=== PATIENT | female | born 1975 | race Two or more races ===

== ENCOUNTER 2017-02-11 10:33 | Emergency (ER) | payer MEDICAID ==
[~2017-02-11] VITALS: Ht 154.9 cm; Wt 63.0 kg
[~2017-02-11 10:33] MED LIST: FERR27TA PO; INSU100C9 SC; INSULIN; NPH SQ; PREN1TAB49 PO; REG SC
[2017-02-11 10:37] VITALS: Ht 154.9 cm; Wt 63.0 kg
--- NOTE | 2017-02-11 11:01 | ERD ---
ER Documentation Chief Complaint Date/Time DATE: 02/11/17 TIME: 10:53 Chief Complaint bilat eye irritation HPI 41-year-old female who presents to the emergency department for bilateral eye irritation for about 10 days. Complains of blurry vision due to her irritation. Denies headache, dizziness, neck pain, eye trauma, halos around lights, tunnel vision, head trauma, neck pain, neck stiffness, difficulty swallowing, shoulder pain, chest pain, back pain, abdominal pain, nausea, vomiting, constipation, diarrhea, urinary symptoms, exposure to any illness, numbness or tingling sensation, fever, chills. No known drug allergies. Has past medical history of diabetes. No surgeries. Does not work at this time. Denies smoking, use of alcohol, use of illegal drugs. ROS All systems reviewed and are negative except as per history of present illness. Medications Home Meds Active Scripts Sulfacetamide Sodium* (Bleph-10*) 10%-15 Ml Opht Drops, 1 DROP BOTH EYES Q2H for 7 Days, #1 EA Prov:SHAYLA KILGOREJC Velazquez 02/11/17 Reported Medications [Insulin] No Conflict Check 09/30/13 Insulin Human Regular (Novolin-R) 100 Unit/Ml Soln, 0 SC DINNER 10/29/11 Insulin Regular, Human (Novolin R) 100 U/Ml Cartridge, 0 SC AM, #14 10/29/11 Insulin Human Nph (Novolin-N) 100 Units/Ml Susp, 0 SQ HS, #22 10/29/11 Insulin Human Nph (Novolin-N) 100 Units/Ml Susp, 0 SQ AM, #30 10/29/11 Ferrous Sulfate (Iron) 1 Tab Tablet, PO AM 04/02/11 Vits W-Ca,Fe,Fa(<1MG) () 1 Tab Tablet, 1 TAB PO DAILY 04/01/11 Allergies Allergies: Coded Allergies: No Known Allergies (Verified Allergy, Mild, 02/11/17) PMhx/Soc History of Surgery: No Anesthesia Reaction: No Hx Neurological Disorder: No Hx Respiratory Disorders: No Hx Cardiac Disorders: No Hx Psychiatric Problems: No Hx Miscellaneous Medical Probl: No Hx Alcohol Use: No Hx Substance Use: No Hx Tobacco Use: No Smoking Status: Never smoker Physical Exam Vitals Vital Signs Date Time Temp Pulse Resp B/P Pulse Ox O2 Delivery O2 Flow Rate FiO2 02/11/17 10:37 98.2 99 18 171/97 99 Physical Exam Const: [] Head: Atraumatic Eyes: MIld conjunctival injection. Extraocular movement of her eyes are WNLs. No pain on eye movement. No visual field loss. ENT: Normal External Ears, Nose and Mouth. No signs of meningeal irritation. Neck: Full range of motion..~ No meningismus. Resp: Clear to auscultation bilaterally Cardio: Regular rate and rhythm, no murmurs Abd: Soft, non tender, non distended. Normal bowel sounds Skin: No petechiae or rashes Back: No midline or flank tenderness Ext: No cyanosis, or edema Neur: Awake and alert x 4. No neurological deficits. Romberg test is negative. Psych: Normal Mood and Affect Results 24 hrs Laboratory Tests Test 02/11/17 12:04 Bedside Glucose 127mg/dL Current Medications Medications (Trade) Dose Ordered Sig/Johnathon Route PRN Reason Start Time Stop Time Status Last Admin Dose Admin Tetracaine HCl (Tetracaine 0.5% Steri-Unit [place]) 1 drop ONCE ONCE BOTH EYES 02/11/17 11:30 02/11/17 11:31 DC Fluorescein Sodium (Ayqde-I-Waoak) 1 strip STK-MED ONCE .ROUTE 02/11/17 11:04 02/11/17 11:05 DC Fluorescein Sodium (Sittb-O-Kcndc) 1 strip ONCE ONCE BOTH EYES 02/11/17 11:30 02/11/17 11:31 DC Procedures/MDM 41-year-old female who presents to the emergency department for bilateral eye irritation for about 10 days. Complains of blurry vision due to her irritation. Denies headache, dizziness, neck pain, eye trauma, halos around lights, tunnel vision, head trauma, neck pain, neck stiffness, difficulty swallowing, shoulder pain, chest pain, back pain, abdominal pain, nausea, vomiting, constipation, diarrhea, urinary symptoms, exposure to any illness, numbness or tingling sensation, fever, chills. No known drug allergies. Has past medical history of diabetes. No surgeries. Does not work at this time. Denies smoking, use of alcohol, use of illegal drugs. Physical exam: MIld conjunctival injection. Extraocular movement of her eyes are WNLs. No pain on eye movement. No visual field loss. Sensory sinus are nontender to palpation. Patent airway. No signs of meningeal irritation. Cranial nerves II through XII are intact. Romberg test is negative. No neurological deficits. Disease process was explained to the patient and family member. They both verbalized understanding and agreed with the diagnostic exam, treatment, plan of care, follow-up. Visual acuity: Reviewed. Treatment: Tetracaine ophthalmic drops 1 bilaterally. [place]: Negative for foreign body. Tonopen: Right eye: 18, 24,24 Left eye: 14, 22, 24 Re-evaluation: Extraocular movement of her eyes are WNLs. No pain on eye movement. Sensory sinus are nontender to palpation. Patent airway. No signs of meningeal irritation. Cranial nerves II through XII are intact. Romberg test is negative. No neurological deficits. Differential diagnosis: Acute angle-closure glaucoma versus diabetic retinopathy versus renal detachment versus foreign body to the eyes versus bacterial conjunctivitis versus viral conjunctivitis versus corneal abrasion versus subconjunctival hemorrhage Final diagnosis: Conjunctivitis Prescription: Bleph-10. Follow-up with primary care physician the next 24-48 hours. PCP to refer patient to cyber legal advisor the next 24-48 hours. Come back here in the emergency department for any new symptoms or any worsening of symptoms. Provided with resources. All questions and concerns are answered. Patient verbalized understanding and agreed with the plan of care. Hemodynamically stable on discharge. Departure Diagnosis: Primary Impression: Conjunctivitis Condition: Stable Additional Instructions: Follow-up with primary care physician the next 24-48 hours. PCP to refer patient to cyber legal advisor the next 24-48 hours. Come back here in the emergency department for any new symptoms or any worsening of symptoms. Provided with resources. All questions and concerns are answered. Patient verbalized understanding and agreed with the plan of care. BRENTON KILGORE Feb 11, 2017 11:00
[2017-02-11] MEDS ORDERED: FLUORESCEIN STRIP ONE (11:04)
[2017-02-11] MEDS ORDERED: TETRACAINE 0.5% 4 ML OPH BOTH EYES ONE (11:30)
[2017-02-11] MEDS ORDERED: FLUORESCEIN STRIP BOTH EYES ONE (11:30)
[2017-02-11] MEDS ORDERED: SULF15DR19 BOTH EYES (11:43)
== END 2017-02-11 12:16 | disposition home or self-care (01) ==
LOC: FTE 10:33
DX: H10.9 Unspecified conjunctivitis (principal); Z79.4 Long term (current) use of insulin
CPT/HCPCS: 82962; Z7502; Z7610; 99283

== ENCOUNTER 2017-11-17 11:07 | Emergency (ER) | END 2017-11-17 15:38 | disposition home or self-care (01) ==

== ENCOUNTER 2018-08-15 09:09 | Emergency (ER) | payer MEDICAID ==
[~2018-08-15] VITALS: Ht 160 cm; Wt 65.3 kg
[~2018-08-15 09:09] MED LIST changes: +FAMO-96 PO; +NITR-58 PO; +SULF15DR19 BOTH EYES
[2018-08-15 09:10] VITALS: BP 149/87; PULSE 89; RESP 18; Ht 160 cm; Wt 65.3 kg
[2018-08-15] MEDS ORDERED: ACYC800T5 PO (09:44)
[2018-08-15] MEDS ORDERED: HYDR-4011 PO (09:44)
--- NOTE | 2018-08-15 09:53 | ERD ---
ER Documentation Chief Complaint Chief Complaint generalze right arm pain and painful sore and bumps on arm x1 HPI 42-year-old female past medical history of diabetes who presents with complaint of right arm rash and pain for approximately 1 week. States she noticed rash/vesicles on upper arm shoulder on the right side first on Wednesday and subsequently noticed spread of rash/vesicles to hand on dorsum surface. He has had tremendous pain to right arm limiting movement but denies any history of trauma. Describes pain as a burning pain. She denies previous history of similar rashes. No recent travel, denies use of new shampoos or lotions. Denies any involvement of ration L any other part of the body seems to be localized to right arm. Denies eye involvement. She otherwise is without complaint. At time of evaluation patient nontoxic-appearing with stable vital signs no fevers. ROS All systems reviewed and are negative except as per history of present illness. Medications Home Meds Active Scripts Hydrocodone/Acetaminophen ([place] 5-325 Tablet) 1 Each Tablet, 1 EACH PO Q6 for 7 Days, TAB Prov:SHYLA BONILLA PA-C 08/15/18 Acyclovir* (Zovirax*) 800 Mg Tablet, 800 MG PO 5 TIMES DAILY for 7 Days, TAB Prov:SHYLA BONILLA-C 08/15/18 Nitrofurantoin Monohyd Macrocr* (Macrobid*) 100 Mg Capsr, 100 MG PO BID for 5 Days, CAP Prov:LUZ CALLAHAN PA-C 11/17/17 Famotidine* (Pepcid*) 20 Mg Tablet, 20 MG PO BID for 30 Days, TAB Prov:LUZ CALLAHAN PA-C 11/17/17 Sulfacetamide Sodium* (Bleph-10*) 10%-15 Ml Opht Drops, 1 DROP BOTH EYES Q2H for 7 Days, #1 EA Prov:BRENTON KILGORE 02/11/17 Reported Medications [Insulin] No Conflict Check 09/30/13 Insulin Human Regular (Novolin-R) 100 Unit/Ml Soln, 0 SC DINNER 10/29/11 Insulin Regular, Human (Novolin R) 100 U/Ml Cartridge, 0 SC AM, #14 10/29/11 Insulin Human Nph (Novolin-N) 100 Units/Ml Susp, 0 SQ HS, #22 10/29/11 Insulin Human Nph (Novolin-N) 100 Units/Ml Susp, 0 SQ AM, #30 10/29/11 Ferrous Sulfate (Iron) 1 Tab Tablet, PO AM 04/02/11 Vits W-Ca,Fe,Fa(<1MG) () 1 Tab Tablet, 1 TAB PO DAILY 04/01/11 Allergies Allergies: Coded Allergies: No Known Allergies (Verified Allergy, Mild, 11/17/17) PMhx/Soc History of Surgery: No Anesthesia Reaction: No Hx Neurological Disorder: No Hx Respiratory Disorders: No Hx Cardiac Disorders: No Hx Psychiatric Problems: No Hx Miscellaneous Medical Probl: Yes (dm) Hx Alcohol Use: No Hx Substance Use: No Hx Tobacco Use: No Smoking Status: Never smoker FmHx Family History: diabetes, coronary disease, other Physical Exam Vitals Vital Signs Date Temp Pulse Resp B/P (MAP) Pulse Ox O2 O2 Flow FiO2 Time Delivery Rate 08/15/18 97.6 89 18 149/87 99 09:10 (107) Physical Exam I have reviewed the triage vital signs. Const: Well nourished, well developed, appears stated age Eyes: PERRL, no conjunctival injection HENT: NCAT, Neck supple without meningismus, no lymphadenopathy CV: RRR, Warm, well-perfused extremities RESP: CTAB, Unlabored respiratory effort GI: soft, non-tender, non-distended, no masses MSK: No gross deformities appreciated Skin: Warm, dry. erythematous clear vesicles distributed [id number] c6 dermatome pattern, uppr R arm and dorsum of hand, upper shoulder rash in state of healing Neuro: grossly non focal Psych: Appropriate mood and affect. Procedures/MDM 42-year-old female who presents with right arm rash and pain suspicious for shingles infection. Doubt any other emergent pathology given classic presentat ion and otherwise stable appearing patient. No reported eye involvement. Plan: Acyclovir [place] for pain control DISPOSITION PLAN: We discussed follow up with the patient's primary care doctor within 24 to 48 hours. Patient counseled regarding my diagnostic impression and care plan. Prior to discharge all questions answered. Pt agrees with treatment plan and understands strict return precautions. Precautionary instructions provided including instructions to return to the ER if not improving or for any worsening or changing symptoms or concerns. Departure Diagnosis: Primary Impression: Shingles Additional Impression: Pain of right arm Condition: Stable Patient Instructions: Shingles (Herpes Zoster) Referrals: [facility] YOU HAVE RECEIVED A MEDICAL SCREENING EXAM AND THE RESULTS INDICATE THAT YOU DO NOT HAVE A CONDITION THAT REQUIRES URGENT TREATMENT IN THE EMERGENCY DEPARTMENT. FURTHER EVALUATION AND TREATMENT OF YOUR CONDITION CAN WAIT UNTIL YOU ARE SEEN IN YOUR DOCTORS OFFICE WITHIN THE NEXT 1-2 DAYS. IT IS YOUR RESPONSIBILITY TO MAKE AN APPOINTMENT FOR FOLOW-UP CARE. IF YOU HAVE A PRIMARY DOCTOR --you should call your primary doctor and schedule an appointment IF YOU DO NOT HAVE A PRIMARY DOCTOR YOU CAN CALL OUR PHYSICIAN REFERRAL HOTLINE AT IF YOU CAN NOT AFFORD TO SEE A PHYSICIAN YOU CAN CHOSE FROM THE FOLLOWING [facility] [address] [facility] [address] [employer] [facility] [address] [facility] [facility] [address] [facility]. [facility] [address] [facility]. [facility]. [address] Additional Instructions: Call your primary care doctor TOMORROW for an appointment during the next 2-3 days.See the doctor sooner or return here if your condition worsens before your appointment time. SHYLA BONILLA PA-C Aug 15, 2018 09:53
== END 2018-08-15 10:11 | disposition home or self-care (01) ==
LOC: FTE 09:09
DX: B02.9 Zoster without complications (principal); M79.601 Pain in right arm; E11.9 Type 2 diabetes mellitus without complications; Z79.4 Long term (current) use of insulin
CPT/HCPCS: 99283